=== PATIENT | male | born 1985 | race Caucasian/White ===

== ENCOUNTER → 2025-01-18 | Outpatient (CLI) | payer BC ==
--- NOTE | 2025-01-18 14:44 | CT ---
EXAMINATION TYPE: CT brain wo con DATE OF EXAM: 01/18/2025 COMPARISON: None CLINICAL INDICATION: Male, 39 years old with history of R51.9 HEADACHES; PHH, headaches CT DLP: 1186 mGycm Automated exposure control for dose reduction was used. Findings: The ventricles, basal cisterns and sulci over the convexities are within normal limits and there is n o mass effect or shift of midline structures. No abnormal density is seen throughout the brain parenchyma and there is no acute intra or extra-axia l hemorrhage. The posterior fossa including the brainstem, fourth ventricle and cerebellar pontine angles appear no rmal. Intraorbital contents appear normal and symmetric. There are mild chronic inflammatory changes in the maxillary sinuses and left ethmoid air cells. The mastoid air cells are well aerated.. The calvarium is intact. IMPRESSION: 1. No acute bleed or mass effect. 2. Mild chronic inflammatory changes of the maxillary and ethmoid sinuses. [facility], , 01/18/2025 2:42 PM
== END | disposition home or self-care (01) ==
LOC: RADCTMAIN 14:17
PROVIDERS: ATTEND Family Medicine
DX: J34.89 Other specified disorders of nose and nasal sinuses (principal)
CPT/HCPCS: 70450